=== PATIENT | female | born 1955 | race Caucasian/White ===

== ENCOUNTER 2022-05-02 11:21 | Emergency (ER) | payer OTHER ==
[~2022-05-02] VITALS: Ht 144.8 cm; Wt 57.2 kg
[2022-05-02 11:33] VITALS: BP 135/72
--- NOTE | 2022-05-02 11:36 | NUR ---
PT AMBULATED TO BED 1
--- NOTE | 2022-05-02 11:50 | NUR ---
pt assessment completed by cara, no nursing interventions required at this time.
[2022-05-02] MEDS ORDERED: ACYC400T14 PO (12:34)
[2022-05-02 12:44] VITALS: BP 134/82
--- NOTE | 2022-05-02 12:44 | NUR ---
Patient discharged with v/s stable. Written and verbal after care instructions given and explained. Patient alert, oriented and verbalized understanding of instructions. Ambulatory with steady gait. All questions addressed prior to discharge. ID band removed. Patient advised to follow up with PMD. Rx of zovirax given. Patient educated on indication of medication including possible reaction and side effects. Opportunity to ask questions provided and answered.
== END 2022-05-02 12:44 | disposition home or self-care (01) ==
LOC: MED 11:21
DX: B02.9 Zoster without complications (principal); Z79.899 Other long term (current) drug therapy
CPT/HCPCS: 99283